=== PATIENT | male | born 1965 | race Caucasian/White ===

== ENCOUNTER 2019-04-30 07:28 | Day surgery (SDC) | payer BC, OTHER ==
[2019-04-29 11:27] VITALS: BMI 35.5
[2019-04-30 07:19] VITALS: TEMP 98.4
[2019-04-30] MEDS ORDERED: PROPOFOL 20 ML ONE ×2 (08:01)
[2019-04-30] MEDS ORDERED: LIDOCAINE HCL/PF 2% SDV 5ML VIAL ONE (08:01)
[2019-04-30 09:26] VITALS: BP 134/68; PULSE 84
--- NOTE | 2019-05-04 16:30 | PATH ---
Surgical Pathology Report Patient Name: WILLIAM CHEEMA [facility]. Rec. #: [id number] /Age/Gender: 1965 (Age: 53) / M Account: [id number] Location: [facility] Taken: 04/30/2019 Received: 04/30/2019 Reported: 05/04/2019 Physicians: Peter Neely M.D. Specimen(s) Received A: POLYP RIGHT COLON B: POLYP LEFT COLON Clinical History Screening, family history of colon cancer Postoperative diagnosis: Colon polyps Final Diagnosis A. COLON, RIGHT, POLYP, BIOPSY: TUBULAR ADENOMA. B. COLON, LEFT, POLYP, BIOPSY: TUBULAR ADENOMA. Electronically Signed Arline Edgar M.D. Gross Description A. Received in formalin, labeled "biopsy polyp right colon" is a vyas, irregular portion of soft tissue measuring 0.4 cm. in greatest dimension. The specimen is submitted in toto in one cassette. B. Received in formalin, labeled "biopsy polyp left colon" is a vyas, irregular portion of soft tissue measuring 0.3 cm. in greatest dimension. The specimen is submitted in toto in one cassette. DL/05/01/2019 saudi/05/01/2019
== END 2019-04-30 09:05 | disposition home or self-care (01) ==
LOC: FASU-ENDO 07:28
PROVIDERS: ATTEND Internal Medicine Gastroenterology
PROC: 0DBM8ZX Excision of Descending Colon, Via Natural or Artificial Opening Endoscopic, Diagnostic (ICD-10-PCS; 2019-04-30)
PROC: 0DBK8ZX Excision of Ascending Colon, Via Natural or Artificial Opening Endoscopic, Diagnostic (ICD-10-PCS; principal; 2019-04-30 08:24)
DX: Z12.11 Encounter for screening for malignant neoplasm of colon (principal); Z80.0 Family history of malignant neoplasm of digestive organs; D12.2 Benign neoplasm of ascending colon; D12.4 Benign neoplasm of descending colon
CPT/HCPCS: 82962; 88305-TC

== ENCOUNTER 2019-08-23 07:31 | Emergency (ER) | payer BC, OTHER ==
[2019-08-23 07:35] VITALS: BP 174/96; PULSE 85; TEMP 97.9; BMI 35.5
--- NOTE | 2019-08-23 07:40 | PDOC ---
History of Present Illness - General Chief Complaint: Toothache Stated Complaint: SWELLING Time Seen by Provider: 08/23/19 07:33 History Source: Patient Exam Limitations: No Limitations - History of Present Illness Initial Comments: 08/23/19 07:36 54 y/o male had 3 teeth extracted on Saturday. Now with pain fever and swelling. Was not placed on antibiotics and did not call dentist. No bleeding. No SOB or chest pain. No N/V/d/c. Taking Ibuprofen. No trouble swallowing or breathing. No neck swelling. 08/23/19 07:38 Is this a multiple visit Asthma Patient?: No Severity: mild Past History - Medical History Allergies/Adverse Reactions: Allergies Allergy/AdvReac Type Severity Reaction Status Date / Time simvastatin AdvReac Intermediate myalgias Verified 08/23/19 07:36 seasonal allergies Allergy Uncoded 08/23/19 07:36 Home Medications: Ambulatory Orders Ramipril [Altace] 10 mg PO DAILY 12/18/11 Metoprolol Succinate [Toprol XL -] 200 mg PO DAILY 12/24/11 Ca Cmb No.1/Vit D3/B-6/FA/B12 [Vitamin D3 1,000 Unit Tablet] 1 each PO AM tablet 08/13/12 Clifton-3 Fatty Acids/Fish Oil [Fish Oil 1,000 Mg Capsule] 3 each PO DAILY capsule 08/13/12 Multivits,Therap W-Fe,Hematin [Vitamin B Complex] 1 each PO DAILY tablet Canagliflozin [Invokana] 100 mg PO DAILY 04/29/19 Cholecalciferol (Vitamin D3) [Vitamin D3] 2,000 unit PO DAILY 04/29/19 Fenofibrate Nanocrystallized [Triglide] 160 mg PO DAILY 04/29/19 Icosapent Ethyl [Vascepa] 1 gm PO BID 04/29/19 Multivitamin [One-Daily Multi-Vitamin] 1 each PO DAILY 04/29/19 Pravastatin Sodium 10 mg PO DAILY 04/29/19 Clindamycin HCl [Cleocin HCl] 150 mg PO TID #21 capsule 08/23/19 Anemia: No Asthma: No Cancer: No Cardiac Disorders: No CVA: No COPD: No CHF: No Dementia: No Diabetes: Yes GI Disorders: No Disorders: No HTN: Yes Hypercholesterolemia: Yes Liver Disease: No Seizures: No Thyroid Disease: No - Surgical History Abdominal Surgery: No Appendectomy: No Cardiac Surgery: No Cholecystectomy: No Lung Surgery: No Neurologic Surgery: No Orthopedic Surgery: Yes (BACK SURGERY 1998) - Psycho-Social/Smoking History Smoking History: Never smoked Have you smoked in the past 12 months: No Number of Cigarettes Smoked Daily: 0 If you are a former smoker, when did you quit?: - Substance Abuse Hx (Audit-C & DAST Scrn) How often the patient has a drink containing alcohol: Monthly or less Number of drinks the patient has on a typical day: 1 or 2 How often the patient has six or more drinks on one occasion: Never Score: In Men: 4 or > Positive; In Women: 3 or > Positive: 1 Screen Result (Pos requires Nsg. Audit-10AR): Negative In the last yr the pt used illegal drug/Rx for NonMed reason: No Score: Yes response is considered Positive: 0 Screen Result (Positive result requires Nsg. DAST-10): Negative Review of Systems - Review of Systems Able to Perform ROS?: Yes Is the patient limited Nepalese proficient: No Constitutional: Yes: Fever. No: Chills HEENTM: Yes: Mouth Pain, Dental Problems. No: Throat Swelling, Difficulty Swallowing Respiratory: No: Cough, Shortness of Breath Cardiac (ROS): No: Chest Pain All Other Systems: Reviewed and Negative *Physical Exam - Vital Signs Last Vital Signs Temp Pulse Resp BP Pulse Ox 97.9 F 85 18 174/96 H 100 08/23/19 07:32 08/23/19 07:32 08/23/19 07:32 08/23/19 07:32 08/23/19 07:32 - Physical Exam General Appearance: Yes: Nourished, Appropriately Dressed. No: Apparent Distress HEENT: positive: EOMI, STEVENSON. negative: Normal ENT Inspection (mild swelling to left side of face, no tenderness, no tenesmus, mild gum swelling no bleeding), Muffled/Hoarse voice, Pharyngeal Erythema Neck: positive: Trachea midline, Normal Thyroid, Supple. negative: Tender, Rigid, Carotid bruit Respiratory/Chest: positive: Lungs Clear, Normal Breath Sounds. negative: Chest Tender, Respiratory Distress Cardiovascular: positive: Regular Rhythm, Regular Rate, S1, S2. negative: Edema, JVD, Murmur Vascular Pulses: Femoral (R): 4+, Femoral (L): 4+, Carotid (R): 4+, Carotid (L): 4+, Dorsalis-Pedis (R): 4+, Doralis-Pedis (L): 4+ Lymphatic: negative: Adenopathy, Tenderness, Other Musculoskeletal: positive: Normal Inspection. negative: CVA Tenderness Extremity: positive: Normal Capillary Refill, Normal Inspection, Normal Range of Motion. negative: Tender Integumentary: positive: Normal Color, Dry, Warm Neurologic: positive: brick off bearer II-XII NML intact, Fully Oriented, Alert, Normal Mood/Affect, Normal Response, Motor Strength / ED Treatment Course - ADDITIONAL ORDERS Additional order review: 08/23/19 07:41 Patient with teeth extraction, will cover for infection Follow up with dentist If worsen return to ER Pt is in agreement with plan Discharge - Discharge Information Problems reviewed: Yes Clinical Impression/Diagnosis: Status post tooth extraction Condition: Stable Disposition: HOME - Admission No - Follow up/Referral - Patient Discharge Instructions Patient Printed Discharge Instructions: DI for Dental Pain Additional Instructions: Clindamycin 150 mg 3x/day for 7 days Continue Ibuprofen Ice, rest Follow up with Dentist If worsen return to ER - Post Discharge Activity
== END 2019-08-23 07:51 | disposition home or self-care (01) ==
LOC: FER 07:31
DX: R50.82 Postprocedural fever (principal); Z98.818 Other dental procedure status
CPT/HCPCS: 99283-25

== ENCOUNTER 2021-02-20 10:48 | Emergency (ER) | payer BC, OTHER ==
[2021-02-20 10:54] VITALS: BP 140/77; PULSE 87; TEMP 99; BMI 35.5
== END 2021-02-20 12:06 | disposition home or self-care (01) ==
LOC: FER 10:48
DX: U07.1 COVID-19 (principal)
CPT/HCPCS: 99281-25

== ENCOUNTER 2022-03-07 20:25 | Emergency (ER) | payer BC ==
[2022-03-07 20:38] VITALS: BP 157/96; PULSE 94; RESP 18; TEMP 98.6; BMI 32.3
[2022-03-07] MEDS ORDERED: SODIUM CHLORIDE 1,000 ML IV STA (21:00)
[2022-03-07] MEDS ORDERED: ACETAMINOPHEN 1000 MG/100 ML BAG IVPB ONE (21:00)
[2022-03-07 21:14] LABS: HEMATOCRIT 46.9 % (35.4-49); HEMOGLOBIN 16.5 G/dL (11.7-16.9); MCH 32.5 pg (25.7-33.7); MCHC 35.2 g/dl (32.0-35.9); MEAN CELL VOLUME 92.3 fl (80-96); MEAN PLT VOLUME 9.4 fl (7.5-11.1); PLATELET COUNT 241.9 10^3/uL (134-434); RBC 5.08 10^6/uL (4.00-5.60); WHITE BLOOD COUNT 10.3 10^3/uL (4.0-10.8)
[2022-03-07 21:26] LABS: ALBUMIN 4.8 g/dl (3.4-5.0); BILIRUBIN,TOTAL 0.6 mg/dl (0.2-1); CALCIUM 10.2 mg/dl (8.5-10); TOT PROT 7.9 g/dl (6.4-8.2)
[2022-03-07] MEDS ORDERED: ACETAMINOPHEN INJECTION 100 ML IVPB ONE (21:35)
[2022-03-07 22:01] LABS: PLATELET ESTIMATE ADEQUATE
== END 2022-03-07 22:19 | disposition home or self-care (01) ==
LOC: FER 20:25
PROC: 3E0337Z Introduction of Electrolytic and Water Balance Substance into Peripheral Vein, Percutaneous Approach (ICD-10-PCS; principal; 2022-03-07)
DX: R10.9 Unspecified abdominal pain (principal)
CPT/HCPCS: 36415; 74176-TC; 80053; 81003; 85027; 87086; 99285-25

== ENCOUNTER 2023-12-04 23:30 | Emergency (ER) | payer BC ==
[2023-12-04 23:45] VITALS: BMI 35.5
[2023-12-05] MEDS ORDERED: morphine SULFATE 4 MG/ML VIAL ONE (00:26)
[2023-12-05] MEDS ORDERED: ACETAMINOPHEN INJECTION 100 ML ONE (00:26)
[2023-12-05] MEDS ORDERED: KETOROLAC TROMETHAMINE 15 MG/ML VIAL ONE (00:27)
[2023-12-05] MEDS: morphine CARPU-JECT 4 MG/1 ML DISP.SYRIN IVPUSH ONE (00:43)
[2023-12-05] MEDS: KETOROLAC TROMETHAMINE 15 MG/ML VIAL IVPUSH ONE (00:45)
[2023-12-05] MEDS ORDERED: METHOCARBAMOL 500 MG TABLET ONE (00:47)
[2023-12-05] MEDS: METHOCARBAMOL 500 MG TABLET PO ONE (00:55)
[2023-12-05] MEDS: ACETAMINOPHEN 1000 MG/100 ML BAG IVPB ONE (01:01)
[2023-12-05 01:09] LABS: EOS % 1.7 % (0-4.5); HEMATOCRIT 46.5 % (35.4-49); HEMOGLOBIN 16.3 GM/dL (11.7-16.9); LYMPH % 39.3 % (8-40); MCH 32.3 pg (25.7-33.7); MEAN CELL VOLUME 92.3 fl (80-96); MONO % 8.7 % (3.8-10.2); NEUT % 49.3 % (42.8-82.8); PLATELET COUNT 217 10^3/uL (134-434); RBC 5.04 M/mm3 (4.00-5.60); RDW 12.3 % (11.9-15.9); WHITE BLOOD COUNT 6.7 K/mm3 (4.0-10.0)
[2023-12-05 01:18] LABS: INR 1.04 (0.83-1.09); PROTHROMBIN TIME (PATIENT) 11.7 SEC (9.7-13.0)
[2023-12-05 01:26] LABS: POTASSIUM 4.2 mmol/L (3.5-5.1)
[2023-12-05 01:29] LABS: ALBUMIN 4.2 g/dl (3.4-5.0)
[2023-12-05 01:32] LABS: CREATININE 1.4 mg/dL (0.55-1.3)
[2023-12-05 01:34] LABS: BILIRUBIN,TOTAL 0.5 mg/dL (0.2-1)
[2023-12-05 01:49] LABS: BLOOD UREA NITROGEN 25.5 mg/dL (7-18); TOT PROT 7.7 g/dl (6.4-8.2)
[2023-12-05] MEDS ORDERED: HYDROmorphone HCL 2 MG TABLET ONE (03:09)
[2023-12-05] MEDS: HYDROmorphone HCL 2 MG TABLET PO ONE ×2 (03:09→03:14)
[2023-12-05] MEDS ORDERED: HYDROmorphone HCl 2 MG/ML VIAL ONE (07:45)
[2023-12-05] MEDS: HYDROmorphone HCl 2 MG/ML VIAL IVPUSH ONE (07:52)
[2023-12-05 07:54] VITALS: BP 125/93; PULSE 80; RESP 18
[2023-12-05 08:00] VITALS: TEMP 98
== END 2023-12-05 08:08 | disposition short-term general hospital (02) ==
LOC: JER 23:30
PROC: 3E033NZ Introduction of Analgesics, Hypnotics, Sedatives into Peripheral Vein, Percutaneous Approach (ICD-10-PCS; principal; 2023-12-05)
PROC: 3E033NZ Introduction of Analgesics, Hypnotics, Sedatives into Peripheral Vein, Percutaneous Approach (ICD-10-PCS; 2023-12-05)
PROC: 3E033NZ Introduction of Analgesics, Hypnotics, Sedatives into Peripheral Vein, Percutaneous Approach (ICD-10-PCS; 2023-12-05)
PROC: 3E0333Z Introduction of Anti-inflammatory into Peripheral Vein, Percutaneous Approach (ICD-10-PCS; 2023-12-05)
DX: M54.50 Low back pain, unspecified (principal); R20.2 Paresthesia of skin; R32 Unspecified urinary incontinence; Z20.822 Contact with and (suspected) exposure to COVID-19
CPT/HCPCS: 0241U-QW; 36415; 80053; 85025; 85610; 85730; 86850; 86900; 86901; 99285-25; J0131

== ENCOUNTER 2024-08-12 07:46 | Day surgery (SDC) | payer BC ==
[2024-08-07 14:46] VITALS: BMI 32.3
[2024-08-12] MEDS ORDERED: PROPOFOL 80 ML ONE ×2 (07:57→07:58)
[2024-08-12] MEDS ORDERED: LIDOCAINE HCL/PF 2% SDV 5ML VIAL ONE (07:58)
[2024-08-12 08:42] VITALS: PULSE 70; RESP 16; TEMP 97.2
[2024-08-12 08:58] VITALS: BP 112/69
== END 2024-08-12 09:10 | disposition home or self-care (01) ==
LOC: FASU-ENDO 07:46
PROVIDERS: ATTEND Internal Medicine Gastroenterology
PROC: 0DJD8ZZ Inspection of Lower Intestinal Tract, Via Natural or Artificial Opening Endoscopic (ICD-10-PCS; principal; 2024-08-12 08:21)
DX: Z12.11 Encounter for screening for malignant neoplasm of colon (principal); Z86.0100 Personal history of colon polyps, unspecified; Z80.0 Family history of malignant neoplasm of digestive organs
CPT/HCPCS: 82962